=== PATIENT | female | born 1965 | race Caucasian/White ===

== ENCOUNTER 2024-04-14 08:11 | Observation (INO) ==
--- NOTE | 2024-04-14 08:54 | Emergency Department Note ---
Impression & Plan Bilateral lower extremity edema, Chronic venous insufficiency, Chronic anticoagulation ED Provider Note NAME: ANA LEGER AGE: 58 SEX: F : 1965 ARRIVES VIA: Walk-In INFORMANT: Patient ED PROVIDER(S): Foreign Pascal MD CHIEF COMPLAINT: bilateral leg edema, redness and pain. PLAN: Disposition: Admit MEDICAL DECISION MAKING: The patient is a pleasant 58-year-old woman with a past medical history of DVT/PE on warfarin, history of CVA, hypertension presents to the ED emergency department via walk-in accompanied by her for evaluation of ongoing bilateral lower leg swelling and redness with worsening pain over the past couple of weeks. The patient presents in setting of being seen at [facility] emergency department twice for the symptoms. She had been treated with ceftriaxone and discharged on Keflex with no improvement. She had returned and was treated with doxycycline with no improvement. She had an ultrasound of her bilateral lower extremities that showed no acute DVT. She was trialed on prednisone for suspected inflammatory process but also showed no improvement. Subsequently her antibiotics and steroids were discontinued and she is being treated for suspected stasis dermatitis with triamcinolone cream and ointment. They report that they only begin ointment yesterday due to continued pain presents for evaluation. Patient reports ongoing chills with no objective fevers. She reports she has compression stockings but does not wear them the same amount of. She denies any chest pain or shortness of breath. Upon my evaluation the patient is in no acute distress, afebrile with stable vital signs. WBC within normal limits. No left shift. H/H similar to prior. Platelets normal. INR therapeutic at 2.2. Chemistry without metabolic acidosis. Total bili 1.2, nonspecific LFTs otherwise normal. Procalcitonin is not elevated. TSH within normal limits. ESR and CRP are mildly elevated at 39 and 7.2, respectively. UA without convincing evidence of infection. Bilateral lower extremity venous ultrasound was negative for DVT. Findings related to the prior varicose vein ablation were described. Given the patient's concern/distress regarding her symptoms we discussed option for escalation of care and referral to hospital service for further evaluation. Patient is agreement with this. Treatment was initiated with IV Lasix for component of hypervolemia in setting of her chronic lymphedema. Given patient's report of feverishness though with no leukocytosis empiric treatment for component of cellulitis initiated with IV daptomycin following blood culture. Case was discussed with Dr. Ballard, [facility] hospitalist, to evaluate the patient for admission. Further management per admitting team. Triage Nursing notes reviewed and agree them. Prior/external medical records reviewed Vital Signs: reviewed Differential diagnosis: Cellulitis, abscess, MRSA infection, DVT, necrotizing fasciitis, dermatitis, drug eruption, allergic reaction, as well as other pathologies. ER treatment provided: See below. Laboratory studies: See below Imaging studies: See below Consultation(s): Dr. Ballard, [facility] hospitalist HPI: The patient is a pleasant 58-year-old woman with a past medical history of DVT/PE on warfarin, history of CVA, hypertension presents to the ED emergency department via walk-in accompanied by her for evaluation of ongoing bilateral lower leg swelling and redness with worsening pain over the past couple of weeks. The patient presents in setting of being seen at [facility] emergency department twice for the symptoms. She had been treated with ceftriaxone and discharged on Keflex with no improvement. She had returned and was treated with doxycycline with no improvement. She had an ultrasound of her bilateral lower extremities that showed no acute DVT. She was trialed on prednisone for suspected inflammatory process but also showed no improvement. Subsequently her antibiotics and steroids were discontinued and she is being treated for suspected stasis dermatitis with triamcinolone cream and ointment. They report that they only begin ointment yesterday due to continued pain presents for evaluation. Patient reports ongoing chills with no objective fevers. She reports she has compression stockings but does not wear them the same amount of. She denies any chest pain or shortness of breath. ROS: See above HPI for pertinent positives & negatives. A total of 10 systems reviewed and were otherwise negative. VITALS:See Below PHYSICAL EXAMINATION: GENERAL: Awake, alert, in no distress, BMI 45.4. HENT: Normocephalic, atraumatic. Oropharynx unremarkable. EYES: Normal conjunctiva. Sclera non-icteric. NECK: Supple. No nuchal rigidity. FROM. No JVD. RESPIRATORY: Clear to auscultation. CARDIAC: Regular rate, normal rhythm. Extremities warm and well perfused. Pulses equal. ABDOMEN: Soft, non-distended. No tenderness to palpation. No rebound or guarding. No masses. MUSCULOSKELETAL: Chest examination reveals no tenderness. The back is symmetrical on inspection without obvious abnormality. There is no CVA tenderness to palpation. No joint edema. LOWER EXTREMITIES: Chronic bilateral lower extremity edema. Venous varicosities and mid bilateral lower leg erythema warmth and tenderness right greater than left. No crepitus. Distal PMS is intact. NEURO: Normal sensorium. No sensory or motor deficits noted. SKIN: No rash or jaundice noted. Foreign Pascal MD Past Med/Surg History Problem List (Updated 04/14/24 @ 17:12 by Foreign Pascal MD) Bilateral lower extremity edema (Acute) GERD (gastroesophageal reflux disease) Chronic venous insufficiency (Acute) Vitamin D deficiency Hand arthritis Urinary incontinence Prediabetes Chronic anticoagulation (Acute) History of pulmonary embolism (~2017) H/O: CVA (cerebrovascular accident) Lymphedema Hypertension Medical History Hand pain Back pain Surgical History Hx of bilateral cataract extraction History of wisdom tooth extraction [place] filter in place unable to be removed H/O laparoscopy Family History Mother , of heart attack in 2014 Myocardial infarction, Onset Age: 78 Stroke Diabetes Father Stroke Sister Lung cancer Thyroid disease Denies family history of Ovarian cancer Prostate cancer Breast cancer Colorectal cancer Social History Smoking Status: Never smoker Second Hand Exposure: No; Do You Dip or Chew Tobacco: No; Hx Alcohol Use: No Hx Substance Use: No Preferred Language: Malian Communication Ability: Effective Visual Impairment: No Limitations Hearing Ability: Normal Payroll Clerk Required: No Beliefs That Will Affect Care: None marital status: Current Living Situation: Spouse Current Living Situation Comment: spouse, son and daughter in law current occupational status: employed current occupation: Assitant director at [employer] How many Children do You have: 2 Feels Safe at Home: Yes Childhood Exposure to Second-Hand Smoke: Yes (father smoked) Diet: regular Diet Comment: regular caffeine: Yes (tea and soda) during the past year weight has: increased > 10 lbs Dental Care, Regularly: Yes Physical Activity Frequency: Daily Seatbelt Use: always Sunscreen Use: Yes Assistive Devices: Glasses Allergies Allergies Allergy/AdvReac Type Severity Reaction Status Date / Time clavulanic acid Allergy Verified 03/31/24 15:52 [From Augmentin] Home Meds Home Medications Medication Instructions Recorded Confirmed warfarin 5 mg tablet 5 mg PO .TUES AND TH10/08/21 04/14/24 omeprazole 20 mg capsule,delayed 20 mg PO DAILY PRN Other 02/17/24 04/14/24 release warfarin 1 mg tablet 2.5 mg PO .S,M,W,F,SAT 04/14/24 04/14/24 Previous Rx's Medication Instructions Recorded hydrochlorothiazide 25 mg tablet 50 mg (2 x 25 mg) PO DAILY #90 tabs 12/11/23 albuterol sulfate 90 mcg/actuation 2 puff inhalation Q6H PRN 02/06/24 aerosol inhaler shortness of breath or wheezing #18 grams lisinopril 20 mg tablet 40 mg (2 x 20 mg) PO DAILY #180 02/13/24 tabs oxybutynin chloride 5 mg 5 mg PO DAILY #90 tabs 02/16/24 tablet,extended release 24 hr clonidine HCl 0.2 mg tablet 0.4 mg (2 x 0.2 mg) PO BID #120 04/12/24 tabs triamcinolone acetonide 0.1 % 1 applic topical BID #453.6 grams 04/13/24 topical ointment Results & Data (ED) Vital Signs Vital Signs - 24 hr 04/14/24 08:20 04/14/24 11:00 04/14/24 13:00 Temperature 36.5 C Temperature Source Temporal Artery Scan Pulse Rate 78 Pulse Rate [Finger] 61 50 L Respiratory Rate 20 21 20 Respiratory Depth Normal Blood Pressure 155/85 H Blood Pressure [Right Arm] 215/86 H 216/104 H Blood Pressure Mean 108 Blood Pressure Mean [Right Arm] 129 141 Pulse Oximetry 97 99 93 Oxygen Delivery Method Room Air Room Air Room Air Sepsis Recent Fever Within 48 Hours No Sepsis New/Unexplained Change in Mental Status No Sepsis Action Taken by Nursing No Action Required 04/14/24 15:00 Temperature Temperature Source Pulse Rate Pulse Rate [Finger] 64 Respiratory Rate 20 Respiratory Depth Blood Pressure Blood Pressure [Right Arm] 161/79 H Blood Pressure Mean Blood Pressure Mean [Right Arm] 106 Pulse Oximetry 98 Oxygen Delivery Method Room Air Sepsis Recent Fever Within 48 Hours Sepsis New/Unexplained Change in Mental Status Sepsis Action Taken by Nursing Laboratory Data Attestation: I reviewed the patient's lab results. 04/14/24 09:12 04/14/24 09:12 Lab Results 04/14/24 04/14/24 Range/Units 09:12 11:29 WBC 9.36 (4.8-10.8) K/ul RBC 4.35 (4.20-5.40) M/uL Hgb 11.4 L (12.0-16.0) g/dl Hct 35.8 L (37.0-47.0) % MCV 82.3 (80.0-100.0) fL MCH 26.2 (25.0-34.0) pg MCHC 31.8 L (32.0-36.0) g/dL RDW Std Deviation 41.2 (36.4-46.3) fL RDW Coeff of [place] 13.9 (11.5-14.5) % Plt Count 293 (130-400) K/uL MPV 9.6 (9.4-12.4) fL Immature Gran % (Auto) 1.3 % Neut % (Auto) 77.2 % Lymph % (Auto) 13.1 % [place] % (Auto) 7.4 % Eos % (Auto) 0.5 % Baso % (Auto) 0.5 % Neut # (Auto) 7.22 H (1.40-6.50) K/uL Lymph # (Auto) 1.23 (1.20-3.40) K/uL [place] # (Auto) 0.69 H (0.11-0.59) K/uL Eos # (Auto) 0.05 (0.00-0.50) K/uL Baso # (Auto) 0.05 (0.00-0.20) K/uL Immature Gran # (Auto) 0.12 (0.01-0.20) K/uL ESR 39 H (0-30) mm/hr PT 21.9 H (9.0-12.0) Seconds INR 2.2 H (0.9-1.1) Sodium 137 (136-145) mmol/L Potassium 4.0 (3.5-5.1) mmol/L Chloride 102 (98-107) mmol/L Carbon Dioxide 30 (21-32) mmol/L Anion Gap 5 (3-11) BUN 14 (6-23) mg/dl Creatinine 0.71 (0.6-1.2) mg/dl Est Cr Clr Drug Dosing Not Reportable eGFR 97.28 BUN/Creatinine Ratio 19.7 (10-20) Glucose 144 H (70-99(Fasting)) mg/dl Calcium 9.2 (8.6-10.3) mg/dl Magnesium 1.9 (1.7-2.4) mg/dl Total Bilirubin 1.2 H (0.2-1.0) mg/dl AST 11 L (13-39) U/L ALT 13 (7-52) U/L Alkaline Phosphatase 90 (34-104) U/L C-Reactive Protein 7.20 H (0-0.5) mg/dl Total Protein 6.7 (6.0-8.3) gm/dl Albumin 3.6 (3.4-5.0) gm/dl Globulin 3.1 (2.5-4.0) gm/dl Albumin/Globulin Ratio 1.2 (0.9-2) Procalcitonin < 0.02 (0-0.5) ng/ml TSH 1.040 (0.300-4.500) uIu/ml Urine Color [place] Urine Appearance Clear (Clear) Urine pH 5.5 (4.5-7.5) Ur Specific [place] 1.016 (1.000-1.030) Urine Protein Negative (Negative) Urine Glucose (UA) Negative (Negative) Urine Ketones Negative (Negative) Urine Blood Negative (Negative) Urine Nitrite Negative (Negative) Urine Bilirubin Negative (Negative) Urine Urobilinogen Negative (Negative) Ur Leukocyte Esterase Trace H (Negative) Urine WBC (Auto) 0-5 (0-5) /hpf Urine RBC (Auto) 0-2 (0-2) /hpf U Hyaline Cast (Auto) 0-2 (0-2) /lpf U Epithel Cells (Auto) 0-2 (0-2) /hpf Urine Bacteria (Auto) None Seen (None Seen) Administered Medications Acetaminophen (Acetaminophen 500 Mg Tab) 1,000 mg PO Q8H PRN PRN Reason: pain Stop: 05/14/24 23:27 Last Admin: 04/14/24 23:39 Dose: 1,000 mg Documented By: FELIBERTO Clonidine HCl (Clonidine Hcl 0.1 Mg Tab) 0.4 mg PO BID [facility] Stop: 05/14/24 20:59 Last Admin: 04/14/24 20:07 Dose: 0.4 mg Documented By: FELIBERTO Furosemide (Furosemide Inj 20 Mg/2 Ml Vial) 20 mg IV BID KARSTEN Stop: 05/14/24 20:59 Last Admin: 04/14/24 20:07 Dose: 20 mg Documented By: FELIBERTO Cefepime HCl (Maxipime 2000mg) 2,000 mg in 20 mls @ 5 mls/min IV Q8H [facility]; Protocol Stop: 04/21/24 21:59 Last Admin: 04/14/24 22:40 Dose: 5 mls/min Documented By: FELIBERTO Ondansetron HCl (Ondansetron Inj 2 Mg/Ml 2 Ml Vial) 4 mg IV Q6H PRN PRN Reason: Nausea And Vomiting Stop: 05/14/24 18:00 Last Admin: 04/14/24 18:23 Dose: 4 mg Documented By: SOCORRO Warfarin Sodium (Warfarin Sod 2.5 Mg Tab) 2.5 mg PO [id number] [facility] Stop: 05/14/24 18:00 Last Admin: 04/14/24 19:26 Dose: 2.5 mg Documented By: FELIBERTO Discontinued Medications Furosemide (Furosemide Inj 20 Mg/2 Ml Vial) 20 mg IV ONE ONE Stop: 04/14/24 14:49 Last Admin: 04/14/24 15:40 Dose: 20 mg Documented By: LINDA Daptomycin 400 mg/ Syringe 8 mls @ 4 mls/min IV Q24H KARSTEN; Protocol Stop: 04/21/24 15:14 Last Admin: 04/14/24 16:03 Dose: 4 mls/min Documented By: LINDA Imaging Data Radiologist's Impression: Venous Doppler Study 04/14/24 09:07 US venous doppler LE BI CLINICAL HISTORY: edema, pain TECHNIQUE: Bilateral lower extremity real-time compression venous ultrasound with Color Doppler imaging. Utilizing real-time ultrasonic imaging multiple real time high-resolution ultrasonic images with compression and noncompression maneuvers of the deep venous system in addition to color doppler imaging were performed from the common femoral vein through the proximal calf veins. COMPARISON: None available at the time of this dictation. FINDINGS/IMPRESSION: No deep venous thrombus, there is normal compressibility of the deep venous system from the common femoral vein through the proximal calf veins. There is a thrombus in the bilateral greater saphenous veins possibly related to ablation. Patent varicosities are seen on the right, possibly thrombosed varicosities are seen on the left. ACT 112: Negative or not required by law. Electronically signed by: Rachid Pedraza M.D. 04/14/2024 10:45 AM Discharge Plan Visit Data Chief Complaint: Leg Injury/Pain Stated Complaint: PAIN IN BOTH LEGS, ?INFECTION ED Provider: Foreign Pascal Discharge Problem: Bilateral lower extremity edema, Chronic venous insufficiency, Chronic anticoagulation Patient Disposition: Admitted As Inpatient Discharge Instructions Interventions: ED Discharge Assessment Last Done: 04/14/24 17:43
[2024-04-14 09:29] LABS: Basophils # (auto) 0.05 K/uL (0.00-0.20); Basophils % (auto) 0.5 %; Eosinophils # (auto) 0.05 K/uL (0.00-0.50); Eosinophils % (auto) 0.5 %; Hematocrit (blood only) 35.8 % (37.0-47.0); Hemoglobin 11.4 g/dl (12.0-16.0); Immature Granulocytes # (auto) 0.12 K/uL (0.01-0.20); Immature Granulocytes % (auto) 1.3 %; Lymphocytes # (auto) 1.23 K/uL (1.20-3.40); Lymphocytes % (auto) 13.1 %; Mean Corpuscular Hemoglobin 26.2 pg (25.0-34.0); Mean Corpuscular Hgb Conc 31.8 g/dL (32.0-36.0); Mean Corpuscular Volume 82.3 fL (80.0-100.0); Mean Platelet Volume 9.6 fL (9.4-12.4); Monocytes # (auto) 0.69 K/uL (0.11-0.59); Monocytes % (auto) 7.4 %; Neutrophils # (auto) 7.22 K/uL (1.40-6.50); Neutrophils % (auto) 77.2 %; Platelet Count 293 K/uL (130-400); RDW Coefficient of Variation 13.9 % (11.5-14.5); RDW Standard Deviation 41.2 fL (36.4-46.3); Red Blood Count 4.35 M/uL (4.20-5.40); White Blood Count 9.36 K/ul (4.8-10.8)
[2024-04-14 09:52] LABS: Alanine Aminotransferase 13 U/L (7-52); Albumin Globulin Ratio 1.2 (0.9-2); Albumin Level 3.6 gm/dl (3.4-5.0); Alkaline Phosphatase 90 U/L (34-104); Anion Gap 5 (3-11); Aspartate Aminotransferase 11 U/L (13-39); BUN Creatinine Ratio 19.7 (10-20); Bilirubin,Total 1.2 mg/dl (0.2-1.0); Blood Urea Nitrogen 14 mg/dl (6-23); Calcium 9.2 mg/dl (8.6-10.3); Carbon Dioxide 30 mmol/L (21-32); Chloride 102 mmol/L (98-107); Globulin 3.1 gm/dl (2.5-4.0); Glucose 144 mg/dl (70-99(Fasting)); Magnesium 1.9 mg/dl (1.7-2.4); Sodium 137 mmol/L (136-145); Total Protein 6.7 gm/dl (6.0-8.3)
[2024-04-14 09:54] LABS: INR 2.2 (0.9-1.1); Prothrombin Time 21.9 Seconds (9.0-12.0)
--- NOTE | 2024-04-14 10:47 | Ultrasound Report ---
US venous doppler LE BI CLINICAL HISTORY: edema, pain TECHNIQUE: Bilateral lower extremity real-time compression venous ultrasound with Color Doppler imagi ng. Utilizing real-time ultrasonic imaging multiple real time high-resolution ultrasonic images with compression and noncompression maneuvers of the deep venous system in addition to color doppler imagi ng were performed from the common femoral vein through the proximal calf veins. COMPARISON: None available at the time of this dictation. FINDINGS/IMPRESSION: No deep venous thrombus, there is normal compressibility of the deep venous system from the common fe moral vein through the proximal calf veins. There is a thrombus in the bilateral greater saphenous v eins possibly related to ablation. Patent varicosities are seen on the right, possibly thrombosed tyrone icosities are seen on the left. ACT 112: Negative or not required by law. Electronically signed by: Rachid Pedraza M.D. 04/14/2024 10:45 AM
[2024-04-14 11:43] LABS: Appearance Urine Clear (Clear); Bacteria Urine Automated None Seen (None Seen); Bilirubin Urine Negative (Negative); Blood Urine Negative (Negative); Cast Urine Automated 0-2 /lpf (0-2); Color Urine Orange; Epithelial Cell Urine Auto 0-2 /hpf (0-2); Glucose Urine UA Negative (Negative); Ketones Urine Negative (Negative); Leukocyte Esterase Urine Trace (Negative); Nitrite Urine Negative (Negative); Protein Urine Negative (Negative); RBC Urine Automated 0-2 /hpf (0-2); Specific Gravity Urine 1.016 (1.000-1.030); Urobilinogen Urine Negative (Negative); WBC Urine Automated 0-5 /hpf (0-5); pH Urine 5.5 (4.5-7.5)
--- NOTE | 2024-04-14 15:20 | History & Physical Report ---
Date of Service April 14, 2024 Assessment & Plan (1) Bilateral lower extremity edema: Plan: Chronic venous insufficiency and lymphedema on HCTZ Noncompliant on HCTZ, takes double doses on weekends but none on weekdays - recent referral to lymphedema clinical this week via PCP - chronic venous stasis dermitis - uses triamcinolone ointment - diagnosed with cellulitis at [facility] 03/30 - treated with Keflex x 10 days - seen again by [facility] 04/06 - treated with doxycycline x 10 days - ESR elevated 39, CRP elevated 7.2 on admission - procal. negative, TSH WNL, UA negative, afebrile, no leukocytosis - B/L venous Doppler negative - no recent echo on file, denies history of CHF - will treat as possible CHF for now, with chronic venous stasis resulting in stasis dermatitis - with bilateral erythema and failed out patient dual antibiotic therapy, likely not cellulitis, hold antibiotic management at this time - given IV Lasix 20 mg and Daptomycin in ED - Continue with IV Lasix 20 mg BID daily - Echo ordered - BNP pending - CXR ordered - Na and fluid restricted diet - SCDs, lynn stockings, and promote frequent movement and leg elevation - monitor on telemetry (2) Chronic anticoagulation: Plan: Significant thrombotic history (TIA x2, PE) on chronic anticoagulation with Warfarin Patient reports history of Factor 5 Leiden - Doppler negative on admission - Warfarin 2.5 SMWFS, 5.0 TuesThurs - PT 21.9, INR 2.2 within therapeutic range - kidney function stable - continue with Warfarin (3) Hypertension: Plan: Elevated on admission - on HCTZ, lisinopril, and clonidine at home, non-compliant with HCTZ - given 20 mg IV lasix in ED - hold HCTZ, continue lisinopril and clonidine - continue Lasix IV 20 BID for edema - with diastolic pressure WNL, will hold off on additional management at this time (4) GERD (gastroesophageal reflux disease): Plan: - on omeprazole at home - pantoprazole during hospitalization Plan Chronic stable diagnoses: urinary incontinence - continue home oxybutynin VTE ppx: continue with home Warfarin Diet: Heart healthy, Low Na, Fluid restricted diet Code status: Full code Dispo: med surg/tele Admission and Anticipated Discharge Date Admission Date: 04/14/24 History of Present Illness Chief Complaint: Leg pain Primary Care Provider: Norma Fisher DO Patient is a 58 y/o female with a pmhx of chronic venous insufficiency, HTN, prediabetes, GERD, urinary incontinence, Factor 5 Leiden, and significant thrombotic history (TIA x2, PE) on termite control representative anticoagulation with Warfarin. Patient presents today with ongoing bilateral leg redness and swelling for the past 2 weeks. She went to [facility] on 03/30, she was given Keflex x 10 days, which she stopped on 04/06. She was placed on doxycycline and a steroid x10 days on 04/06, and she stopped 04/12. She has had a decreased appetite, along with alternating between feeling hot and chills for the past 2 weeks. She had nausea last night and this morning. She also stated that she has felt short of breath on exertion for the past few days, worsening today. 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 She denies a history of CHF, and stated she has had an echo years ago. Patient denies headache, dizziness, lightheadedness, chest pain, abdominal pain,vomiting, diarrhea, constipation, numbness, tingling. Patient does not smoke or drink. She denies past history of cancer, diabetes, and UT. She has not had leg swelling like this in the past. She does not use oxygen at baseline. She took all of her home medications this morning and wishes to be full code. Allergies Allergy/AdvReac Type Severity Reaction Status Date / Time clavulanic acid Allergy Verified 03/31/24 15:52 [From Augmentin] Home Medications Medication Instructions Recorded Confirmed Type warfarin 5 mg tablet 5 mg PO .TUES AND TH10/08/21 04/14/24 History hydrochlorothiazide 25 mg tablet 50 mg (2 x 25 mg) PO DAILY #90 tabs 12/11/23 04/14/24 Rx albuterol sulfate 90 mcg/actuation 2 puff inhalation Q6H PRN 02/06/24 04/14/24 Rx aerosol inhaler shortness of breath or wheezing #18 grams lisinopril 20 mg tablet 40 mg (2 x 20 mg) PO DAILY #180 08/09/24 10/09/24 Rx tabs oxybutynin chloride 5 mg 5 mg PO DAILY #90 tabs 02/16/24 04/14/24 Rx tablet,extended release 24 hr omeprazole 20 mg capsule,delayed 20 mg PO DAILY PRN Other 02/17/24 04/14/24 History release clonidine HCl 0.2 mg tablet 0.4 mg (2 x 0.2 mg) PO BID #120 04/12/24 04/14/24 Rx tabs triamcinolone acetonide 0.1 % 1 applic topical BID #453.6 grams 04/13/24 04/14/24 Rx topical ointment warfarin 1 mg tablet 2.5 mg PO .S,M,W,F,SAT 04/14/24 04/14/24 History Past Med/Surg History Problem List (Updated 04/14/24 @ 17:12 by Foreign Pascal MD) Bilateral lower extremity edema (Acute) GERD (gastroesophageal reflux disease) Chronic venous insufficiency (Acute) Vitamin D deficiency Hand arthritis Urinary incontinence Prediabetes Chronic anticoagulation (Acute) History of pulmonary embolism (~2016) H/O: CVA (cerebrovascular accident) Lymphedema Hypertension Medical History Hand pain Back pain Surgical History Hx of bilateral cataract extraction History of wisdom tooth extraction Giles filter in place unable to be removed H/O laparoscopy Family History Mother , of heart attack in 2014 Myocardial infarction, Onset Age: 78 Stroke Diabetes Father Stroke Sister Lung cancer Thyroid disease Denies family history of Ovarian cancer Prostate cancer Breast cancer Colorectal cancer Social History Smoking Status: Never smoker Second Hand Exposure: No; Do You Dip or Chew Tobacco: No; Hx Alcohol Use: No Hx Substance Use: No Preferred Language: Hebrew Communication Ability: Effective Visual Impairment: No Limitations Hearing Ability: Normal Winter Sports Manager Required: No Beliefs That Will Affect Care: None marital status: Current Living Situation: Spouse Current Living Situation Comment: spouse, son and daughter in law current occupational status: employed current occupation: Assitant director at [employer] How many Children do You have: 2 Feels Safe at Home: Yes Childhood Exposure to Second-Hand Smoke: Yes (father smoked) Diet: regular Diet Comment: regular caffeine: Yes (tea and soda) during the past year weight has: increased > 10 lbs Dental Care, Regularly: Yes Physical Activity Frequency: Daily Seatbelt Use: always Sunscreen Use: Yes Assistive Devices: Glasses Review of Systems Review of Systems: see HPI Physical Exam Physical Exam: The patient is awake, alert and oriented 3, well developed and well nourished, normocephalic and atraumatic, in no acute distress. Non-toxic appearing. HEENT- EOMI, mucous membranes moist. Hearing grossly intact. Heart-normal S1 and S2. No murmurs, rubs or gallops. Lungs-clear bilaterally, no respiratory distress, no accessory muscle use. Abdomen-normal bowel sounds and soft. No ascites noted. Non-tender. Extremities- no clubbing, cyanosis. Bilateral lower leggings with non pitting edema. Circumferential erythema and warmth, R>L. Rheumatologic-normal range of motion. Psychiatric-normal affect. Results & Data Results & Data Vital Signs (Past 12 Hours) Vital Signs Temp Pulse Pulse Resp BP BP Pulse Ox 04/14/24 13:00 50 L 20 216/104 H 93 04/14/24 11:00 61 21 215/86 H 99 04/14/24 08:20 36.5 C 78 20 155/85 H 97 O2 Del Method 04/14/24 13:00 Room Air 04/14/24 11:00 Room Air 04/14/24 08:20 Room Air Laboratory Results reviewed CBC, CMP, CRP, ESR, Procal., TSH, UA Code Status & VTE Plan Code Status Full Code VTE Prophylaxis Plan VTE Prophylaxis will be ordered: Yes Supervising Physician Co-Signing Physician Notes Patient seen and examined, chart reviewed, case discussed with Xiao Wong PA-C and I agree with the assessment and plan as above except as otherwise noted Labs and images reviewed 58-year-old female with a history of chronic venous insufficiency, prediabetes, GERD, factor V Leiden with prior history of PE on warfarin with therapeutic levels who presents with bilateral lower extremity swelling and erythema. Was seen at [facility] and was placed on Keflex for 10 days and then Doxy for an additional 10 days. She has had some shortness of breath intermittently, and has had increased leg swelling bilaterally. Initially antibiotics were deferred due to bilateral findings and no leukocytosis without fever. On assessment patient has a significantly worsened right sided demarcated erythema rapidly worsening and spreading to the ankle compared to the left which is tender to palpation and which has some anterior bluish-green sheen overlying the erythema. Given this elevated CRP and rapid worsening over 24 hours with asymmetrical presentation we will place on cefepime overnight. She does have a clear bilateral venous stasis component which is also exacerbated and with some anterior venous stasis changes on the left; Recommend venous mobilization strategies for known lower extremity edema 12 mobilize fluid for effective diuresis, wrap legs as needed and elevate at least 3 times per day. Chest x-ray is clear, BNP is pending. Patient is anticoagulated with therapeutic INR, low suspicion for VTE. Otherwise agree with above PG Care Time/CCT Total # of Minutes Spent Total Time Spent with Patient: Total time spent is greater than 50% in coordination of care (as documented) at patient's floor/unit and/or counseling patient: [place] [address] INT INP/OBS CARE 3/75MIN Patient Type Established Medical Decision Making High Complexity Diagnoses Bilateral lower extremity edema R60.0 Chronic anticoagulation Z79.01 Hypertension I10 GERD (gastroesophageal reflux disease) K21.9 Time Spent (min) 75
[2024-04-14] MEDS: FUROSEMIDE INJ 20 MG/2 ML VIAL IV ONE (15:40)
[2024-04-14] MEDS: DAPTOmycin 400 MG in SYRINGE 0 ML IV SCH (16:03)
--- NOTE | 2024-04-14 18:02 | XRay Report ---
XR chest 1V portable CLINICAL HISTORY: SOB TECHNIQUE: Single frontal radiograph of the chest was obtained. Comparison: None available at the time of this dictation. FINDINGS: No lines and tubes are seen. Calcified aortic knob is seen. The lungs are clear. No evidence of pleur al effusion or pneumothorax. IMPRESSION: No acute chest disease. ACT 112: Negative or not required by law. Electronically signed by: Rachid Pedraza M.D. 04/14/2024 6:00 PM
[2024-04-14] MEDS ORDERED: PANTOprazole 40 MG TAB PO PRN (18:12)
[2024-04-14] MEDS: ONDANSETRON INJ 2 MG/ML 2 ML VIAL IV PRN (18:23)
[2024-04-14] MEDS: WARFARIN SOD 2.5 MG TAB PO SCH (19:26)
[2024-04-14] MEDS: cloNIDine HCL 0.1 MG TAB PO SCH (20:07)
[2024-04-14] MEDS: FUROSEMIDE INJ 20 MG/2 ML VIAL IV SCH (20:07)
[2024-04-14] MEDS: CEFEPIME 2000MG 2,000 MG/20 ML SYR IV SCH (22:40)
[2024-04-14] MEDS: ACETAMINOPHEN 500 MG TAB PO PRN (23:39)
[2024-04-15 06:56] LABS: Hematocrit (blood only) 33.1 % (37.0-47.0); Hemoglobin 10.9 g/dl (12.0-16.0); Mean Corpuscular Hemoglobin 26.5 pg (25.0-34.0); Mean Corpuscular Hgb Conc 32.9 g/dL (32.0-36.0); Mean Corpuscular Volume 80.5 fL (80.0-100.0); Mean Platelet Volume 9.9 fL (9.4-12.4); Platelet Count 299 K/uL (130-400); RDW Coefficient of Variation 14.3 % (11.5-14.5); RDW Standard Deviation 41.7 fL (36.4-46.3); Red Blood Count 4.11 M/uL (4.20-5.40); White Blood Count 10.26 K/ul (4.8-10.8)
[2024-04-15 07:10] LABS: BUN Creatinine Ratio 14.2 (10-20); Calcium 8.9 mg/dl (8.6-10.3); Creatinine Clr Calc Pharmacy 65.7 ml/min; Potassium 4.1 mmol/L (3.5-5.1)
[2024-04-15] MEDS: lisinopril 40 MG TAB PO SCH (07:17)
[2024-04-15] MEDS: OXYBUTYNIN CHLORIDE XL 5 MG TABCR PO SCH (07:17)
--- NOTE | 2024-04-15 11:21 | Electrocardiogram Report ---
Test Reason : Blood Pressure : */* mmHG Vent. Rate : 54 BPM Atrial Rate : 54 BPM P-R Int : 136 ms QRS Dur : 88 ms QT Int : 492 ms P-R-T Axes : -25 -21 -15 degrees QTcB Int : 466 ms Sinus bradycardia Minimal voltage criteria for LVH, may be normal variant Poor R wave progression, consider anterior OR vs. lead placement vs. LVH Abnormal ECG No previous ECGs available Confirmed by Caleb Bernabe ([id number]) on 04/15/2024 11:20:58 AM Referred By: REFERRED SELF Confirmed By: Caleb Bernabe
--- NOTE | 2024-04-15 11:21 | Hospitalist Progress Note ---
Date of Service April 15, 2024 Assessment & Plan (1) Bilateral lower extremity edema: Plan: Improving Chronic venous insufficiency and lymphedema on noncompliant on HCTZ Worsening erythema, heat, pain--now with RLE cellulitis, on chronic venous stasis, and possible underlying MARISELA - recent referral to lymphedema therapy this week via PCP - chronic venous stasis dermitis - uses triamcinolone ointment - failed outpatient treatment with Keflex, doxycycline, and prednisone as an outpt - ESR elevated 39, CRP elevated 7.2 on admission - procal. negative, TSH WNL, UA negative, afebrile, no leukocytosis, BNP mildly elevated - B/L venous Doppler negative - CXR negative - Echo negative for CHF, normal left ventricular function, EF = 60-65% - right leg more erythematous and tender than left, improving with abx - IV Lasix 20 mg BID daily discontinued after 3 doses due to ANDREEA - Na and fluid restricted diet - blood cultures pending - nocturnal pulse ox to be completed to assess for MARISELA - SCDs, lynn stockings, and promote frequent movement and leg elevation - monitor on telemetry - continue Cefepime and resume Dapto for empiric MRSA coverage -check MRSA swab (2) Acute kidney injury: Plan: Likely secondary to Lasix use - Cr increased from 0.71 to 1.41, BUN elevated to 20 - FENa 0.3% = pre-renal cause of ANDREEA - UA WNL - post void bladder scan WNL - BMP recheck at 1500 showed improved Cr, BUN elevated 27 -> indicated prerenal cause - Hold Lasix and lisinopril - continue to promote oral hydration (3) Chronic anticoagulation: Plan: Significant thrombotic history (TIA x2, PE) on chronic anticoagulation with Warfarin Patient reports history of Factor 5 Leiden - Doppler negative on admission - Warfarin 2.5 SMWFS, 5.0 TuesThurs - PT 21.9, INR 2.2 within therapeutic range on admission - kidney function stable - continue with Warfarin, daily INR (4) Hypertension: Plan: Chronic; Elevated on admission - on HCTZ, lisinopril, and clonidine at home, non-compliant with HCTZ - given 3 doses of 20 mg IV lasix for edema - hold lisinopril and Lasix in setting of ANDREEA - continue clonidine (5) GERD (gastroesophageal reflux disease): Plan: Chronic - on omeprazole at home - pantoprazole during hospitalization Plan Chronic stable diagnoses: urinary incontinence - continue home oxybutynin VTE ppx: continue with home Warfarin Diet: Heart healthy, Low Na, Fluid restricted diet Code status: Full code Dispo: med surg/tele Admission and Anticipated Discharge Date Admission Date: April 14, 2024 Supervising Physician Co-Signing Physician Notes RACIEL Supervision Note: I did not personally see or examine the patient today, but I verified all estrada points of RACIEL Wong's assessment and plan with the following exceptions/additions: None Subjective Patient seen at beside with sister and doing well. She still has burning pain in her legs that has improved. The erythema has improved. She stated that she does snore but she has never had a sleep study. Discussed with patient the possibility that sleep apnea is contributing to her edema. She has been urinating frequently with the Lasix. She still has dyspnea on exertion that has been unchanged. Patient denies fever, chills, dizziness, lightheadedness, chest pain, abdominal pain, nausea, vomiting, diarrhea, constipation,numbness, tingling. Tele: Sinus bradycardia, HR 46-60 Review of Systems Review of Systems: see HPI Physical Exam Physical Exam: The patient is awake, alert and oriented 3, well developed and well nourished, normocephalic and atraumatic, in no acute distress. Non-toxic appearing. HEENT- EOMI, mucous membranes moist. Hearing grossly intact. Heart-normal S1 and S2. No murmurs, rubs or gallops. Lungs-clear bilaterally, no respiratory distress, no accessory muscle use. Abdomen-normal bowel sounds and soft. No ascites noted. Non-tender. Extremities- no clubbing, cyanosis. Bilateral lower leggings with non pitting edema. Circumferential erythema and warmth, R>L. Erythema improved from pen marking. Rheumatologic-normal range of motion. Psychiatric-normal affect. Results & Data Results & Data Vital Signs (Past 12 Hours) Vital Signs Temp Pulse Pulse Resp BP Pulse Ox O2 Del Method 04/15/24 08:25 53 L 04/15/24 07:26 36.6 C 48 L 18 152/75 H 92 Room Air 04/15/24 02:44 36.5 C 64 16 101/61 95 Nasal Cannula 04/14/24 23:42 36.7 C 56 L 18 90 Room Air O2 Flow Rate 04/15/24 08:25 04/15/24 07:26 04/15/24 02:44 2 04/14/24 23:42 Laboratory Results reviewed cbc, bmp, and BNP PG Care Time/CCT Total # of Minutes Spent Total Time Spent with Patient: Total time spent is greater than 50% in coordination of care (as documented) at patient's floor/unit and/or counseling patient: C[place] [address] SUB INP/OBS CARE 3/50MIN Patient Type Established Medical Decision Making High Complexity Diagnoses Bilateral lower extremity edema R60.0 Acute kidney injury N17.9 Chronic anticoagulation Z79.01 Hypertension I10 GERD (gastroesophageal reflux disease) K21.9 Time Spent (min) 50
--- NOTE | 2024-04-15 12:08 | XCELERA ---
[id number]
[2024-04-15 14:28] LABS: Creatinine Urine Random 231.8 mg/dl
[2024-04-15 15:45] LABS: Calcium 8.8 mg/dl (8.6-10.3); Potassium 3.8 mmol/L (3.5-5.1)
[2024-04-15 15:51] LABS: BUN Creatinine Ratio 19.4 (10-20); Creatinine Clr Calc Pharmacy 66.6 ml/min
[2024-04-15] MEDS: WARFARIN SOD 5 MG TAB PO SCH (16:22)
[2024-04-15] MEDS: DAPTOmycin 400 MG in SYRINGE 0 ML IV SCH (22:06)
[2024-04-16 08:07] LABS: Hematocrit (blood only) 34.3 % (37.0-47.0); Hemoglobin 11.3 g/dl (12.0-16.0); Mean Corpuscular Hemoglobin 26.6 pg (25.0-34.0); Mean Corpuscular Hgb Conc 32.9 g/dL (32.0-36.0); Mean Corpuscular Volume 80.7 fL (80.0-100.0); Mean Platelet Volume 10.1 fL (9.4-12.4); Platelet Count 287 K/uL (130-400); RDW Coefficient of Variation 14.2 % (11.5-14.5); RDW Standard Deviation 41.5 fL (36.4-46.3); Red Blood Count 4.25 M/uL (4.20-5.40)
[2024-04-16 08:19] LABS: INR 2.1 (0.9-1.1); Prothrombin Time 21.1 Seconds (9.0-12.0)
[2024-04-16 08:23] LABS: Calcium 9.1 mg/dl (8.6-10.3); Creatinine Clr Calc Pharmacy 93.1 ml/min; Potassium 4.1 mmol/L (3.5-5.1)
--- NOTE | 2024-04-16 10:08 | Discharge Summary ---
Discharge Summary Date of Service April 16, 2024 Principal Dx & Hospital Course #1 = Principal Diagnosis (1) Bilateral lower extremity edema: Improving Chronic venous insufficiency, s/p bilateral great saph vein ablations, noncompliant on HCTZ Worsening erythema, heat, pain--now with RLE cellulitis, on chronic venous stasis, and possible underlying MARISELA - follows with vascular for CVI, LGSV ablation 03/05 and had right GSV ablation prior to that, follow up appointment with vascular 04/21 - recent referral to lymphedema therapy this week via PCP - chronic venous stasis dermitis - uses triamcinolone ointment - failed outpatient treatment with Keflex, doxycycline, and prednisone as an outpt - ESR elevated 39, CRP elevated 7.2 on admission - procal. negative, TSH WNL, UA negative, afebrile, no leukocytosis, BNP mildly elevated - blood cultures showed no growth after 48 hours - B/L venous Doppler negative for DVT - thrombus seen in b/l great saphenous veins - discussed with Dr. Valle and findings are typical after a bilateral GSV closure - CXR negative - Echo negative for CHF, normal left ventricular function, EF = 60-65% - right leg more erythematous and tender than left, improving with abx - MRSA negative; no MRSA history - defer MRSA tx at this time as nonpurulent - nocturnal pulse ox incomplete, 2 step does not qualify for home oxygen - IV Lasix 20 mg BID daily discontinued after 3 doses due to ANDREEA - will discontinue HCTZ, start on torsemide 10 mg to take MWF, recommend to take in early afternoon after finished work day to promote compliance - SCDs, lynn stockings, and promote frequent movement and leg elevation - Cefepime and Dapto during hospital stay - with previous failure with Keflex and Doxy - will transition to Cipro 500 mg PO BID (QTC WNL) to cover in case of Pseudomonas, and cefdinir 300 mg PO BID for strep Coverage and other gram- negatives; continue until 04/24 for full 10 days course abx - Ciprofloxacin may interact with Warfarin, so recommend a repeat INR on Friday - recommend out patient sleep study to evaluate for MARISELA (2) Acute kidney injury: Resolved Likely secondary to aggressive Lasix use on admission for lower extremity edema - Cr improved from 1.41 to 1.00, BUN elevated to 32 - FENa 0.3% = pre-renal cause of ANDREEA - UA WNL - post void bladder scan WNL-no obstruction - Held lisinopril and lasix; will resume lisinopril and torsemide on discharge with BMP repeat in 1 week with PCP (3) Chronic anticoagulation: Significant thrombotic history (TIA x2, PE) on chronic anticoagulation with Warfarin Patient reports history of Factor 5 Leiden - Doppler negative on admission for DVT but does show thrombus in the bilateral GSV's from recent venous ablation which is expected - Warfarin 2.5 SMWFS, 5.0 TuesThurs - INR 2.1 within therapeutic range - kidney function stable - continue with Warfarin and check INR on Friday now that she is on antibiotics (4) Hypertension: Chronic; Elevated on admission - on HCTZ, lisinopril, and clonidine at home, non-compliant with HCTZ - given 3 doses of 20 mg IV lasix for edema - held lisinopril and Lasix in setting of ANDREEA; will resume lisinopril and low- dose torsemide Friday on discharge - continue clonidine (5) GERD (gastroesophageal reflux disease): Chronic - on omeprazole at home - pantoprazole during hospitalization Plan Chronic stable diagnoses: urinary incontinence - continue home oxybutynin VTE ppx: continue with home Warfarin Diet: Heart healthy, Low Na, Fluid restricted diet Code status: Full code Dispo: Discharge home with Vascular and PCP follow up, repeated BMP in 1 week. Recheck INR Friday. Tele: Sinus bradycardia, HR 40-50 Notes For Next Care Provider Patient was treated for an ANDREEA during hospitalization. I recommend repeat BMP 1 week after discharge. Ciprofloxacin may interact with Warfarin, so recommend a repeat INR on Friday. There may be a component of sleep apnea contributing to her edema. The overnight study in the hospital was inconclusive and the 2 step test did not qualify her for home oxygen. I recommend a referral to an out patient sleep study. Medication Changes From Visit Hydrochlorothiazide discontinued Started on torsemide 10 mg MWF, to take in early afternoon after done with work Ciprofloxacin 500 mg PO BID x 8 more days and cefdinir 300 mg PO BID x 8 more days Admission HPI Per Admitting Provider Patient is a 58 y/o female with a pmhx of chronic venous insufficiency, HTN, prediabetes, GERD, urinary incontinence, Factor 5 Leiden, and significant thrombotic history (TIA x2, PE) on care home anticoagulation with Warfarin. Patient presents today with ongoing bilateral leg redness and swelling for the past 2 weeks. She went to [facility] on 03/30, she was given Keflex x 10 days, which she stopped on 04/06. She was placed on doxycycline and a steroid x10 days on 04/06, and she stopped 04/12. She has had a decreased appetite, along with alternating between feeling hot and chills for the past 2 weeks. She had nausea last night and this morning. She also stated that she has felt short of breath on exertion for the past few days, worsening today. 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 She denies a history of CHF, and stated she has had an echo years ago. Patient denies headache, dizziness, lightheadedness, chest pain, abdominal pain,vomiting, diarrhea, constipation, numbness, tingling. Patient does not smoke or drink. She denies past history of cancer, diabetes, and [place]. She has not had leg swelling like this in the past. She does not use oxygen at baseline. She took all of her home medications this morning and wishes to be full code. Admission Exam Per Admitting Provider The patient is awake, alert and oriented 3, well developed and well nourished, normocephalic and atraumatic, in no acute distress. Non-toxic appearing. HEENT- EOMI, mucous membranes moist. Hearing grossly intact. Heart-normal S1 and S2. No murmurs, rubs or gallops. Lungs-clear bilaterally, no respiratory distress, no accessory muscle use. Abdomen-normal bowel sounds and soft. No ascites noted. Non-tender. Extremities- no clubbing, cyanosis. Bilateral lower leggings with non pitting edema. Circumferential erythema and warmth, R>L. Rheumatologic-normal range of motion. Psychiatric-normal affect. Discharge Exam The patient is awake, alert and oriented 3, well developed and well nourished, normocephalic and atraumatic, in no acute distress. Non-toxic appearing. HEENT- EOMI, mucous membranes moist. Hearing grossly intact. Heart-normal S1 and S2. No murmurs, rubs or gallops. Lungs-clear bilaterally, no respiratory distress, no accessory muscle use. Abdomen-normal bowel sounds and soft. No ascites noted. Non-tender. Extremities- no clubbing, cyanosis. Bilateral lower leggings with non pitting edema. Circumferential erythema and warmth, R>L. Erythema improved from pen marking. Rheumatologic-normal range of motion. Psychiatric-normal affect. Discharge Plan Discharge Items Patient Disposition: Home - Self-Care Reason For Visit: B/L LE EDEMA, POSSIBLE CHF Discharge Diagnosis: 1. Cellulitis 2. Chronic venous stasis 3. Acute kidney injury, resolved Condition on Discharge: Good Activity: Resume your previous activity Non-emergency contact: Primary Care Provider and Specialist Call non-emergency contact if: you have any medication questions and your symptoms worsen Follow-up/Referrals: Ree Leger PA-C [Physician Animal Skinner] - (Follow up with already scheduled appointment 04/21) Norma Fisher DO [Primary Care Provider] - (Follow up 1 week with repeat BMP) Diet: Low Sodium (2gm) Addtl Attending Provider Instructions: You were seen in the hospital for bilateral lower leg swelling. We determined that it was due to cellulitis with a component of chronic venous insufficiency as well. You are to take the following antibiotics until 04/24: Ciprofloxacin twice a day and Cefdinir twice a day. You have already received antibiotics since 04/14, giving you a full day 10 course. A prescription has been sent to your pharmacy. You are to start the first dose of these tonight 04/16. Ciprofloxacin may interact with Warfarin, so I recommend a repeat INR on Friday. Continue with your follow up with vascular on 04/21. I have discontinued your hydrochlorothiazide. I started you on a low dose of a different diuretic called torsemide. As discussed, you can take this 3 days a week (Friday, Friday, Friday) in the early afternoon when you are getting off of work. There may be a component of sleep apnea contributing to your leg swelling. The overnight study in the hospital was inconclusive and the 2 step test did not qualify you for home oxygen. I recommend a referral to an out patient sleep study with your PCP. You were also found to have an acute kidney injury during your hospital stay. Your kidney function was improved the day of discharge. I recommend to follow up with your PCP in 1-2 weeks, with a repeat Basic metabolic panel (BMP) 1 week after discharge. Pending Studies at Discharge: No Stand-Alone Forms: My [facility], Work/School Release Medications and DC Order Prescriptions: New ciprofloxacin HCl 500 mg tablet 500 mg PO BID Qty: 15 0RF cefdinir 300 mg capsule 300 mg PO BID 8 Days Qty: 15 0RF torsemide 10 mg tablet 10 mg PO .MWF Qty: 15 0RF Rx Instructions: Can take in afternoon 3 days a week, MWF Continued lisinopril 20 mg tablet 40 mg PO DAILY Qty: 180 1RF oxybutynin chloride 5 mg tablet extended release 24hr 5 mg PO DAILY Qty: 90 1RF clonidine HCl 0.2 mg tablet 0.4 mg PO BID Qty: 120 1RF triamcinolone acetonide 0.1 % ointment 1 applic topical BID Qty: 453.6 1RF warfarin 5 mg tablet 5 mg PO . AND Protocol: Dose Management Condition: Friday Dose/Route: 2.5 mg Instruction: 0.5 x 5 mg tablets Condition: Friday Dose/Route: 2.5 mg Instruction: 0.5 x 5 mg tablets Condition: Friday Dose/Route: 5 mg Instruction: 1 x 5 mg tablet Condition: Friday Dose/Route: 2.5 mg Instruction: 0.5 x 5 mg tablets Condition: Dose/Route: 5 mg Instruction: 1 x 5 mg tablet Condition: Friday Dose/Route: 2.5 mg Instruction: 0.5 x 5 mg tablets Condition: Friday Dose/Route: 2.5 mg Instruction: 0.5 x 5 mg tablets Protocol Text: Adjustment Start Date: Friday04/13/24 INR Value: 2.0 INR Date: 04/12/24 Recheck Date: 05/04/24 Rx Instructions: 5mg friday and . 2.5 mg rest of days albuterol sulfate 90 mcg/actuation HFA aerosol inhaler 2 puff inhalation Q6H PRN (Reason: shortness of breath or wheezing) Qty: 18 3RF omeprazole 20 mg capsule,delayed release(DR/EC) 20 mg PO DAILY PRN (Reason: Other) warfarin 1 mg tablet 2.5 mg PO .S,M,W,F,SAT Protocol: Dose Management Condition: Friday Dose/Route: 2.5 mg Instruction: 0.5 x 5 mg tablets Condition: Friday Dose/Route: 2.5 mg Instruction: 0.5 x 5 mg tablets Condition: Friday Dose/Route: 5 mg Instruction: 1 x 5 mg tablet Condition: Friday Dose/Route: 2.5 mg Instruction: 0.5 x 5 mg tablets Condition: Dose/Route: 5 mg Instruction: 1 x 5 mg tablet Condition: Friday Dose/Route: 2.5 mg Instruction: 0.5 x 5 mg tablets Condition: Friday Dose/Route: 2.5 mg Instruction: 0.5 x 5 mg tablets Protocol Text: Adjustment Start Date: Friday04/13/24 INR Value: 2.0 INR Date: 04/12/24 Recheck Date: 05/04/24 Discontinued hydrochlorothiazide 25 mg tablet 50 mg PO DAILY Qty: 90 1RF Discharge Orders: Discharge Order (Routine); Ordered 04/16/24 Ordered By: Xiao Macedo/Other Patient Handouts: Cellulitis Dc Admission Data Admit Date/Time: 04/14/24 16:34 Attending Provider: Katie Oshea Admit Provider: Garcia Ballard Primary Care Provider: Norma Fisher Other Providers: Garcia Ballard Other Interventions: Discharge Summary Assessment (RN) Last Done: 04/16/24 15:28 Hospital Stay Data Consultations 04/14/24 15:06 ED Decision to Admit Stat Diagnostic Imagining Performed Venous Doppler Study 04/14/24 09:07 US venous doppler LE BI CLINICAL HISTORY: edema, pain TECHNIQUE: Bilateral lower extremity real-time compression venous ultrasound with Color Doppler imaging. Utilizing real-time ultrasonic imaging multiple real time high-resolution ultrasonic images with compression and noncompression maneuvers of the deep venous system in addition to color doppler imaging were performed from the common femoral vein through the proximal calf veins. COMPARISON: None available at the time of this dictation. FINDINGS/IMPRESSION: No deep venous thrombus, there is normal compressibility of the deep venous s ystem from the common femoral vein through the proximal calf veins. There is a thrombus in the bilateral greater saphenous veins possibly related to ablation. Patent varicosities are seen on the right, possibly thrombosed varicosities are seen on the left. ACT 112: Negative or not required by law. Electronically signed by: Rachid Pedraza M.D. 04/14/2024 10:45 AM Chest X-Ray 04/14/24 16:39 XR chest 1V portable CLINICAL HISTORY: SOB TECHNIQUE: Single frontal radiograph of the chest was obtained. Comparison: None available at the time of this dictation. FINDINGS: No lines and tubes are seen. Calcified aortic knob is seen. The lungs are clear. No evidence of pleural effusion or pneumothorax. IMPRESSION: No acute chest disease. ACT 112: Negative or not required by law. Electronically signed by: Rachid Pedraza M.D. 04/14/2024 6:00 PM Discharge Instructions Given to Patient (Per Discharging Provider) You were seen in the hospital for bilateral lower leg swelling. We determined that it was due to cellulitis with a component of chronic venous insufficiency as well. You are to take the following antibiotics until 04/24: Ciprofloxacin twice a day and Cefdinir twice a day. You have already received antibiotics since 04/14, giving you a full day 10 course. A prescription has been sent to your pharmacy. You are to start the first dose of these tonight 04/16. Ciprofloxacin may interact with Warfarin, so I recommend a repeat INR on Friday. Continue with your follow up with vascular on 04/21. I have discontinued your hydrochlorothiazide. I started you on a low dose of a different diuretic called torsemide. As discussed, you can take this 3 days a week (Friday, Friday, Friday) in the early afternoon when you are getting off of work. There may be a component of sleep apnea contributing to your leg swelling. The overnight study in the hospital was inconclusive and the 2 step test did not qualify you for home oxygen. I recommend a referral to an out patient sleep study with your PCP. You were also found to have an acute kidney injury during your hospital stay. Your kidney function was improved the day of discharge. I recommend to follow up with your PCP in 1-2 weeks, with a repeat Basic metabolic panel (BMP) 1 week after discharge. Supervising Physician Co-Signing Physician Notes RACIEL Supervision Note: I personally saw and examined the patient. I verified all estrada points and agree with RACIEL Wong with the following exceptions and/or additions: S-patient reports pain redness and swelling have improved in the legs especially on the right since admission. She still gets some redness after she is up on her feet walking around for a while but improves with elevation of the legs. She reports her legs were less swollen after her GSV ablations but swelling then returned. 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 O- Vitals reviewed Gen: AAOx3, NAD morbidly obese HEENT: Anicteric sclerae, EOMI CV: RRR no mgr nl S1S2 Pulm: CTAB no wcr Ext: 1+ pitting edema of the legs to the thighs bilaterally, very minimal erythema of bilateral anterior tibia, receded from marker line, mild tenderness to palpation Skin: No rashes, warm/dry Neuro: Full strength throughout CBC, BMP, blood culture reviewed [id number] female here with chronic venous reflux status post GSV bilateral ablations with morbid obesity and right lower extremity cellulitis Echocardiogram with preserved EF Improving with antibiotics with cefepime and daptomycin-MRSA swab checked and is negative-no need for MRSA coverage Will provide coverage with Cipro and cefdinir as above Follow-up closely with vascular medicine for ongoing leg swelling, start torsemide 10 Mg p.o. Friday and monitor renal function and electrolytes as an outpatient Check INR Friday while on antibiotics needs close follow-up Follow-up with PCP Encourage weight loss Total Time Total Time Spent Total Time Spent (In Minutes): 35 mins Total Time Includes: Examination of the Patient, Discharge Planning, Medication Reconciliation and Communication With Other Providers [place] [address] INP/OBS DISCH >30 MIN Patient Type Established Medical Decision Making High Complexity Diagnoses Bilateral lower extremity edema R60.0 Acute kidney injury N17.9 Chronic anticoagulation Z79.01 Hypertension I10 GERD (gastroesophageal reflux disease) K21.9
[2024-04-16 15:47] VITALS: BP 122/70; PULSE 53; RESP 18; TEMP 98.2; O2SAT 94
== END 2024-04-16 16:16 | disposition home or self-care (01) ==
LOC: 2N 08:11 → ED 08:11 → SUATTDRO 16:34 → 2N 17:43